=== PATIENT | male | born 1990 | race African-American/Black ===

== ENCOUNTER 2023-11-01 19:07 | Emergency (ER) | payer OTHER, SELFPAY ==
[2023-11-01 19:09] VITALS: BP 148/84; PULSE 83; RESP 16; TEMP 36.1; O2SAT 95; BMI 33.6
--- NOTE | 2023-11-01 20:13 | EDS_ITS ---
HPI HPI - URI History of Present Illness Chief Complaint: Cold Sx Narrative Narrative: 43-year-old male with cough, congestion. 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 He states that one of the kids tested positive for influenza. Another 1 had pneumonia. Patient does not feel severely ill. He states I am just hoping to get a [id number]-Jean-Pierre . Patient has not had a fever. He has a painful cough but no chest pain. No nausea or vomiting. He had some mild diarrhea which resolved. ROS ROS ED Constitutional Constitutional ED: Reports chills; Denies fever(s) or sweats Eyes Eyes: Denies blurry vision or change in vision ENT ENT ED: Denies ear pain or sore throat Cardiovascular Cardiovascular: Denies chest pain, palpitations or racing heartbeat Respiratory/Chest Respiratory/Chest: Reports cough; Denies dyspnea or sputum Gastrointestinal Gastrointestinal: Denies abdominal pain, constipation, diarrhea, nausea or vomiting Genitourinary Genitourinary ED: Denies dysuria, hematuria or urinary frequency Musculoskeletal Musculoskeletal: Denies arthralgias, myalgias or neck pain Integumentary Denies abscess, Abrasions or rash Neurologic Neurologic: Denies headache(s), paresthesias or weakness Psychiatric Psychiatric: Denies anxiety, depression, suicidal ideation or suicidal thoughts Endocrine Endocrinology: Denies polydipsia or polyuria [facility] Medical History Hypertension Home Medications benzonatate 200 mg capsule 200 mg PO BID PRN cough #20 caps 11/01/23 [Rx Last Taken Unknown] codeine 10 mg-guaifenesin 100 mg/5 mL oral liquid 5 ml PO Q6H PRN flu symptoms #120 mL 11/01/23 [Rx Last Taken Unknown] losartan 50 mg tablet 50 mg PO DAILY 11/01/23 [History Last Taken Unknown] Allergy/AdvReac Type Severity Reaction Status Date / Time No Known Allergies Allergy Verified 11/01/23 19:08 Social History Smoking Status: Never smoker EXAM Physical Exam Const Vital Signs: 11/01/23 19:09 Temperature 97 F L Temperature Source Temporal Pulse Rate 83 Respiratory Rate 16 Blood Pressure 148/84 H Blood Pressure Mean 105 Pulse Ox 95 Oxygen Delivery Method Room Air Positive well nourished General Appearance ED: NAD; Negative for pallor HEENT Reports moist mucous membranes normocephalic and atraumatic Neck no lymphadenopathy Resp normal respiratory effort and clear to auscultation bilaterally Auscultation: Negative for rales or rhonchi Cardio Rate: regular rate Rhythm: regular rhythm Neuro oriented x3 and CN's II-XII intact bilaterally Sensorium / Orientation: alert Psych mental status grossly normal Skin General Skin Exam: Negative for jaundice or pallor MDM MDM MDM Narrative Medical decision making narrative: 33-year-old male presenting with viral symptoms. COVID, influenza, RSV were ordered and are pending. Lungs clear to auscultation bilateral. Heart regular rate and rhythm. I did give the patient a prescription for Tessalon Perles and Cheratussin as he states his lungs burning at times when he is coughing. Do not believe he is a chest x-ray or lab work. I did discharge him before his swab returned as he wants to have a prescription filled tonight and we do not have the Cheratussin at her pharmacy. I sent it over to [facility] who was apparently open at this time. 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 I did give him paperwork so he can login and access his medical record. Return precautions were discussed. Impression: 1. URI?viral Lab Data Attestation: I reviewed the patient's lab results. Discharge Plan Triage Chief Complaint: Cold Sx Other Complaint: Chest Pain ED Provider: Osmar Leon Dx/Rx/DC Orders Instructions: ED Influenza (Adult) Prescriptions: New codeine-guaifenesin 10-100 mg/5 mL liquid 5 ml PO Q6H PRN (Reason: flu symptoms) Qty: 120 0RF benzonatate 200 mg capsule 200 mg PO BID PRN (Reason: cough) Qty: 20 0RF No Action losartan 50 mg tablet 50 mg PO DAILY Primary Care Provider: Chencho Adan Referrals: Chencho Adan MD [Primary Care Provider] - Disposition Disposition: Home, Self Care
[2023-11-01 20:22] VITALS: BP 146/74; PULSE 83; RESP 18; TEMP 36.7; O2SAT 94
== END 2023-11-01 20:22 | disposition home or self-care (01) ==
PROVIDERS: Emergency Provider Student in an Organized Health Care Education/Training Program; PCP Family Medicine; Visit Provider Student in an Organized Health Care Education/Training Program
DX: J06.9 Acute upper respiratory infection, unspecified (principal); Z11.52 Encounter for screening for COVID-19; I10 Essential (primary) hypertension
CPT/HCPCS: 87631; 99283